=== PATIENT | female | born 1950 | race Two or more races ===

== ENCOUNTER 2018-09-27 09:19 | Outpatient (CLI) | payer OTHER ==
[~2018-09-27 09:19] MED LIST: CEFADROXIL500 MG PO; GLIMEPIRIDE4 MG PO; IRON1TAB4 PO; NORVASC 5MG TAB PO; Neurontin PO; SYNTHROID125 MCG PO; ZESTRIL40 M1 PO
== END 2018-09-27 09:26 | disposition home or self-care (01) ==
LOC: TOM 09:19
DX: D50.8 Other iron deficiency anemias (principal); D50.0 Iron deficiency anemia secondary to blood loss (chronic); K27.9 Peptic ulcer, site unspecified, unspecified as acute or chronic, without hemorrhage or perforation; K90.9 Intestinal malabsorption, unspecified
CPT/HCPCS: 74177; Q9965

== ENCOUNTER 2019-01-09 09:15 | Outpatient (CLI) | payer OTHER | END 2019-01-09 09:18 | disposition home or self-care (01) | LOC: SONOGRAMA 09:15 | DX: R10.9 Unspecified abdominal pain (principal); K82.8 Other specified diseases of gallbladder ==

== ENCOUNTER 2019-02-17 07:16 | Outpatient (CLI) | payer OTHER | END 2019-02-17 07:25 | disposition home or self-care (01) | LOC: NUCLEAR 07:16 | DX: K81.1 Chronic cholecystitis (principal) | CPT/HCPCS: 78227; A9537 ==

== ENCOUNTER 2019-09-29 11:12 | Inpatient (IN) | payer OTHER ==
[~2019-09-29] VITALS: Ht 152.4 cm; Wt 65.8 kg
[2019-09-30] MEDS ORDERED: AMLODIPINE BESYL5 MG PO (08:03)
[2019-09-30] MEDS ORDERED: GABAPENTIN600 MG PO (08:04)
[2019-09-30] MEDS ORDERED: METFORMIN HCL1000 M3 PO (08:04)
[2019-09-30] MEDS ORDERED: CITALOPRAM HBR40 MG PO (08:04)
[2019-09-30] MEDS ORDERED: DAFLONEX-XL 11300 MG PO (08:05)
[2019-09-30] MEDS ORDERED: LEVO-T100 MCG PO (08:05)
[2019-10-01] MEDS ORDERED: IRON1TAB4 PO (18:39)
== END 2019-10-01 19:19 | disposition home or self-care (01) | DRG 812 ==
LOC: MEDJ 11:12
PROVIDERS: ADMIT Internal Medicine Hematology & Oncology
PROC: 8E0ZXY6 Isolation (ICD-10-PCS; principal; 2019-09-29)
PROC: 30233N1 Transfusion of Nonautologous Red Blood Cells into Peripheral Vein, Percutaneous Approach (ICD-10-PCS; 2019-09-29)
PROC: 07DR3ZX Extraction of Iliac Bone Marrow, Percutaneous Approach, Diagnostic (ICD-10-PCS; 2019-10-01)
DX: D50.0 Iron deficiency anemia secondary to blood loss (chronic) (principal); E11.9 Type 2 diabetes mellitus without complications; E03.8 Other specified hypothyroidism; I10 Essential (primary) hypertension

== ENCOUNTER 2020-03-04 11:12 | Outpatient (CLI) | payer OTHER ==
[~2020-03-04 11:12] MED LIST changes: +AMLODIPINE BESYL5 MG PO; +CITALOPRAM HBR40 MG PO; +DAFLONEX-XL 11300 MG PO; +GABAPENTIN600 MG PO; +LEVO-T100 MCG PO; +METFORMIN HCL1000 M3 PO
== END 2020-03-04 11:15 | disposition home or self-care (01) ==
LOC: NUCLEAR 11:12
PROVIDERS: ATTEND Internal Medicine Hematology & Oncology
DX: I87.2 Venous insufficiency (chronic) (peripheral) (principal)

== ENCOUNTER 2020-03-05 11:15 | Outpatient (CLI) | payer OTHER | END 2020-03-05 11:17 | disposition home or self-care (01) | LOC: NUCLEAR 11:15 | PROVIDERS: ATTEND Internal Medicine Hematology & Oncology | DX: I70.213 Atherosclerosis of native arteries of extremities with intermittent claudication, bilateral legs (principal) ==

== ENCOUNTER 2020-03-15 14:11 | Outpatient (CLI) | payer OTHER | END 2020-03-15 14:15 | disposition home or self-care (01) | LOC: RAD 14:11 | PROVIDERS: ATTEND Internal Medicine Cardiovascular Disease | DX: I10 Essential (primary) hypertension (principal) ==

== ENCOUNTER 2020-04-06 17:04 | Inpatient (IN) | payer OTHER ==
[2020-04-09] MEDS ORDERED: CARdura 4MG TABLET PO (18:03)
[2020-04-09] MEDS ORDERED: CARVEDILOL12.5 MG PO (18:03)
[2020-04-09] MEDS ORDERED: LISINOPRIL40 MG PO (18:04)
[2020-04-09] MEDS ORDERED: SYNTHROID125 MCG PO (18:05)
[2020-04-09] MEDS ORDERED: METFORMIN HCL500 MG PO (18:05)
[2020-04-09] MEDS ORDERED: METOLAZONE5 MG PO (18:05)
[2020-04-09] MEDS ORDERED: POM (MEDICAMENTO EN PO (18:06)
[2020-04-09] MEDS ORDERED: LASIX20 MG PO (18:11)
== END 2020-04-09 18:54 | disposition home or self-care (01) | DRG 812 ==
LOC: SURG 17:04 → SURH 04-07 12:56
PROVIDERS: ADMIT Internal Medicine Hematology & Oncology; ATTEND Internal Medicine Hematology & Oncology
PROC: 30233N1 Transfusion of Nonautologous Red Blood Cells into Peripheral Vein, Percutaneous Approach (ICD-10-PCS; principal; 2020-04-07)
PROC: B24BZZZ Ultrasonography of Heart with Aorta (ICD-10-PCS; 2020-04-08)
PROC: BW40ZZZ Ultrasonography of Abdomen (ICD-10-PCS; 2020-04-08)
DX: D50.9 Iron deficiency anemia, unspecified (principal); E03.9 Hypothyroidism, unspecified; I11.0 Hypertensive heart disease with heart failure; E11.319 Type 2 diabetes mellitus with unspecified diabetic retinopathy without macular edema; E11.42 Type 2 diabetes mellitus with diabetic polyneuropathy; I87.2 Venous insufficiency (chronic) (peripheral); E11.22 Type 2 diabetes mellitus with diabetic chronic kidney disease; Z79.4 Long term (current) use of insulin; E11.65 Type 2 diabetes mellitus with hyperglycemia; N18.2 Chronic kidney disease, stage 2 (mild); I50.9 Heart failure, unspecified

== ENCOUNTER 2020-04-23 14:51 | Outpatient (CLI) | payer OTHER ==
[~2020-04-23 14:51] MED LIST changes: +CARVEDILOL12.5 MG PO; +CARdura 4MG TABLET PO; +LASIX20 MG PO; +LISINOPRIL40 MG PO; +METFORMIN HCL500 MG PO; +METOLAZONE5 MG PO; +POM (MEDICAMENTO EN PO
== END 2020-04-23 15:05 | disposition home or self-care (01) ==
LOC: RAD 14:51
PROVIDERS: ATTEND Specialist/Technologist, Other Nephrology
DX: I12.9 Hypertensive chronic kidney disease with stage 1 through stage 4 chronic kidney disease, or unspecified chronic kidney disease (principal); N18.1 Chronic kidney disease, stage 1

== ENCOUNTER 2020-05-18 13:23 | Outpatient (CLI) | payer OTHER | END 2020-05-18 13:40 | disposition home or self-care (01) | LOC: SONOGRAMA 13:23 | PROVIDERS: ATTEND Internal Medicine Sports Medicine | DX: E04.8 Other specified nontoxic goiter (principal); E03.8 Other specified hypothyroidism; E04.1 Nontoxic single thyroid nodule ==

== ENCOUNTER → 2020-06-07 | Outpatient (CLI) | payer OTHER | END | disposition home or self-care (01) | LOC: RX STUDY 09:40 | DX: K57.10 Diverticulosis of small intestine without perforation or abscess without bleeding (principal); D50.0 Iron deficiency anemia secondary to blood loss (chronic) ==

== ENCOUNTER 2020-07-12 12:35 | Inpatient (IN) | payer OTHER ==
[2020-07-14] MEDS ORDERED: CARDURA XL4 MG (08:15)
[2020-07-14] MEDS ORDERED: JANUMET 50-5001 EACH (08:16)
== END 2020-07-14 18:06 | disposition home or self-care (01) | DRG 812 ==
LOC: SURH 12:35 → SURG 13:09 → SURH 13:38
PROVIDERS: ADMIT Internal Medicine Cardiovascular Disease; ATTEND Internal Medicine Cardiovascular Disease
PROC: 30233N1 Transfusion of Nonautologous Red Blood Cells into Peripheral Vein, Percutaneous Approach (ICD-10-PCS; principal; 2020-07-12)
DX: D50.8 Other iron deficiency anemias (principal); E11.40 Type 2 diabetes mellitus with diabetic neuropathy, unspecified; E11.65 Type 2 diabetes mellitus with hyperglycemia; Z79.4 Long term (current) use of insulin; E03.9 Hypothyroidism, unspecified; I10 Essential (primary) hypertension; N18.1 Chronic kidney disease, stage 1; E11.21 Type 2 diabetes mellitus with diabetic nephropathy

== ENCOUNTER → 2020-08-12 | Outpatient (CLI) | payer OTHER ==
[~2020-08-12] MED LIST changes: +CARDURA XL4 MG; +JANUMET 50-5001 EACH
== END | disposition home or self-care (01) ==
LOC: SONOGRAMA 11:35
PROVIDERS: ATTEND Internal Medicine Gastroenterology
DX: K80.80 Other cholelithiasis without obstruction (principal); Q61.02 Congenital multiple renal cysts; R10.84 Generalized abdominal pain

== ENCOUNTER 2020-09-29 09:38 | Inpatient (IN) | payer OTHER ==
[~2020-09-29] VITALS: Ht 152.4 cm; Wt 73.5 kg
[2020-09-30] MEDS ORDERED: CITALOPRAM HBR40 MG PO (17:09)
[2020-09-30] MEDS ORDERED: CARDURA XL4 MG PO (17:09)
[2020-09-30] MEDS ORDERED: LISINOPRIL40 MG PO (17:09)
[2020-09-30] MEDS ORDERED: CARVEDILOL3.125 MG PO (17:11)
== END 2020-09-30 17:27 | disposition home or self-care (01) | DRG 812 ==
LOC: SEC-K 09:38 → MEDI 09:38 → SEC-K 19:08 → SURH 19:32
PROVIDERS: ADMIT Internal Medicine Hematology & Oncology; ATTEND Internal Medicine Hematology & Oncology
PROC: 30233N1 Transfusion of Nonautologous Red Blood Cells into Peripheral Vein, Percutaneous Approach (ICD-10-PCS; principal; 2020-09-29)
DX: D50.0 Iron deficiency anemia secondary to blood loss (chronic) (principal); K55.20 Angiodysplasia of colon without hemorrhage

== ENCOUNTER 2021-03-26 19:38 | Inpatient (IN) | payer OTHER ==
[~2021-03-26] VITALS: Ht 152.4 cm; Wt 74.4 kg
[~2021-03-26 19:38] MED LIST changes: +CARDURA XL4 MG PO; +CARVEDILOL3.125 MG PO
[2021-04-01] MEDS ORDERED: INTESTINEX680 M1 PO (16:58)
== END 2021-04-01 17:22 | disposition home or self-care (01) | DRG 178 ==
LOC: ER 19:38 → MEDJ 03-27 00:10
PROVIDERS: ADMIT Internal Medicine Hematology & Oncology; ATTEND Internal Medicine Hematology & Oncology
PROC: 8E0ZXY6 Isolation (ICD-10-PCS; 2021-03-26)
PROC: 30233N1 Transfusion of Nonautologous Red Blood Cells into Peripheral Vein, Percutaneous Approach (ICD-10-PCS; principal; 2021-03-27)
PROC: 3E0F7SF Introduction of Other Gas into Respiratory Tract, Via Natural or Artificial Opening (ICD-10-PCS; 2021-03-28)
DX: U07.1 COVID-19 (principal); A91 Dengue hemorrhagic fever; D61.818 Other pancytopenia; D50.9 Iron deficiency anemia, unspecified; D69.59 Other secondary thrombocytopenia; E03.8 Other specified hypothyroidism; E11.65 Type 2 diabetes mellitus with hyperglycemia; E11.21 Type 2 diabetes mellitus with diabetic nephropathy; K52.89 Other specified noninfective gastroenteritis and colitis

== ENCOUNTER 2021-05-19 06:44 | Day surgery (SDC) | payer OTHER ==
[~2021-05-19 06:44] MED LIST changes: +INTESTINEX680 M1 PO
== END 2021-05-19 11:15 | disposition home or self-care (01) ==
LOC: AMB-ENDOS 06:44
PROVIDERS: ATTEND Internal Medicine Gastroenterology
DX: D13.2 Benign neoplasm of duodenum (principal); K29.50 Unspecified chronic gastritis without bleeding; Z20.822 Contact with and (suspected) exposure to COVID-19

== ENCOUNTER 2021-06-13 16:58 | Inpatient (IN) | payer OTHER ==
[~2021-06-13] VITALS: Ht 152.4 cm; Wt 73.5 kg
[2021-06-15] MEDS ORDERED: CARVEDILOL3.125 MG PO (16:26)
[2021-06-15] MEDS ORDERED: CITALOPRAM HBR40 MG PO (16:26)
[2021-06-15] MEDS ORDERED: LISINOPRIL40 MG PO (16:26)
[2021-06-15] MEDS ORDERED: CARDURA XL4 MG PO (16:26)
[2021-06-15] MEDS ORDERED: GABAPENTIN600 MG PO (16:27)
[2021-06-15] MEDS ORDERED: SYNTHROID125 MCG PO (16:27)
[2021-06-15] MEDS ORDERED: GLIMEPIRIDE4 MG PO (16:27)
[2021-06-15] MEDS ORDERED: JANUMET 50-5001 EACH PO (16:29)
== END 2021-06-15 17:08 | disposition home or self-care (01) | DRG 812 ==
LOC: MEDI 16:58
PROVIDERS: ADMIT Internal Medicine Hematology & Oncology; ATTEND Internal Medicine Hematology & Oncology
PROC: 30233N1 Transfusion of Nonautologous Red Blood Cells into Peripheral Vein, Percutaneous Approach (ICD-10-PCS; principal; 2021-06-14)
DX: D50.0 Iron deficiency anemia secondary to blood loss (chronic) (principal); K55.20 Angiodysplasia of colon without hemorrhage

== ENCOUNTER 2021-07-07 14:08 | Outpatient (CLI) | payer OTHER ==
[~2021-07-07 14:08] MED LIST changes: +JANUMET 50-5001 EACH PO
== END 2021-07-07 14:12 | disposition home or self-care (01) ==
LOC: PPH VACUNA 14:08
PROVIDERS: ATTEND Emergency Medicine Pediatric Emergency Medicine
DX: Z23 Encounter for immunization (principal)

== ENCOUNTER 2021-07-27 17:05 | Inpatient (IN) | payer OTHER ==
[~2021-07-27] VITALS: Ht 152.4 cm; Wt 73.5 kg
== END 2021-07-29 12:53 | disposition home or self-care (01) | DRG 812 ==
LOC: MEDJ 17:05
PROVIDERS: ADMIT Internal Medicine Hematology & Oncology; ATTEND Internal Medicine Hematology & Oncology
PROC: 30233N1 Transfusion of Nonautologous Red Blood Cells into Peripheral Vein, Percutaneous Approach (ICD-10-PCS; principal; 2021-07-28)
PROC: 8E0ZXY6 Isolation (ICD-10-PCS; 2021-07-28)
PROC: 0DB68ZX Excision of Stomach, Via Natural or Artificial Opening Endoscopic, Diagnostic (ICD-10-PCS; 2021-07-29)
DX: D50.8 Other iron deficiency anemias (principal); D73.2 Chronic congestive splenomegaly; Q27.33 Arteriovenous malformation of digestive system vessel; E11.40 Type 2 diabetes mellitus with diabetic neuropathy, unspecified; E11.65 Type 2 diabetes mellitus with hyperglycemia; E11.22 Type 2 diabetes mellitus with diabetic chronic kidney disease; E03.9 Hypothyroidism, unspecified; K29.40 Chronic atrophic gastritis without bleeding; K57.30 Diverticulosis of large intestine without perforation or abscess without bleeding; K55.20 Angiodysplasia of colon without hemorrhage; K31.7 Polyp of stomach and duodenum; I87.2 Venous insufficiency (chronic) (peripheral); N18.1 Chronic kidney disease, stage 1; Z20.822 Contact with and (suspected) exposure to COVID-19

== ENCOUNTER 2022-06-22 13:15 | Outpatient (CLI) | payer OTHER | END 2022-06-22 13:18 | disposition home or self-care (01) | LOC: RAD 13:15 | PROVIDERS: ATTEND Physical Medicine & Rehabilitation | DX: M25.511 Pain in right shoulder (principal) ==

== ENCOUNTER 2022-07-28 14:25 | Outpatient (CLI) | payer OTHER | END 2022-07-28 14:38 | disposition home or self-care (01) | LOC: PPH VACUNA 14:25 | PROVIDERS: ATTEND Emergency Medicine Pediatric Emergency Medicine | DX: Z23 Encounter for immunization (principal) ==

== ENCOUNTER 2022-10-04 07:36 | Outpatient (CLI) | payer OTHER | END 2022-10-04 07:53 | disposition home or self-care (01) | LOC: MAMO-SONO 07:36 | PROVIDERS: ATTEND Internal Medicine Hematology & Oncology | DX: Z12.31 Encounter for screening mammogram for malignant neoplasm of breast (principal); N93.9 Abnormal uterine and vaginal bleeding, unspecified ==

== ENCOUNTER 2022-10-24 16:13 | Outpatient (CLI) | payer OTHER | END 2022-10-24 16:22 | disposition home or self-care (01) | LOC: RAD 16:13 | PROVIDERS: ATTEND Specialist/Technologist, Other Nephrology | DX: I50.32 Chronic diastolic (congestive) heart failure (principal); I12.9 Hypertensive chronic kidney disease with stage 1 through stage 4 chronic kidney disease, or unspecified chronic kidney disease; N18.1 Chronic kidney disease, stage 1 ==

== ENCOUNTER → 2023-02-09 | Outpatient (CLI) | payer OTHER | END | disposition home or self-care (01) | LOC: PPH VACUNA | PROVIDERS: ATTEND Emergency Medicine Pediatric Emergency Medicine | DX: Z23 Encounter for immunization (principal) ==

== ENCOUNTER → 2023-02-16 | Outpatient (CLI) | payer OTHER | END | disposition home or self-care (01) | LOC: SONOGRAMA 08:38 | PROVIDERS: ATTEND Internal Medicine Cardiovascular Disease | DX: R10.84 Generalized abdominal pain (principal) ==

== ENCOUNTER 2023-03-27 08:17 | Outpatient (CLI) | payer OTHER | END 2023-03-27 08:21 | disposition home or self-care (01) | LOC: TOM 08:17 | PROVIDERS: ATTEND Specialist/Technologist, Other Nephrology | DX: R18.8 Other ascites (principal); I12.9 Hypertensive chronic kidney disease with stage 1 through stage 4 chronic kidney disease, or unspecified chronic kidney disease; N18.30 Chronic kidney disease, stage 3 unspecified ==

== ENCOUNTER 2023-04-11 07:50 | Outpatient (CLI) | payer OTHER | END 2023-04-11 07:59 | disposition home or self-care (01) | LOC: SONOGRAMA 07:50 | PROVIDERS: ATTEND Internal Medicine Gastroenterology | DX: N18.9 Chronic kidney disease, unspecified (principal) ==

== ENCOUNTER 2023-05-23 17:40 | Emergency (ER) | payer OTHER ==
[~2023-05-23] VITALS: Ht 152.4 cm; Wt 76.2 kg
== END 2023-05-23 22:50 | disposition home or self-care (01) ==
LOC: ER 17:40
DX: S01.02XA Laceration with foreign body of scalp, initial encounter (principal); S62.002A Unspecified fracture of navicular [scaphoid] bone of left wrist, initial encounter for closed fracture; W18.39XA Other fall on same level, initial encounter; Y93.89 Activity, other specified; Y92.89 Other specified places as the place of occurrence of the external cause; E11.9 Type 2 diabetes mellitus without complications; Z79.84 Long term (current) use of oral hypoglycemic drugs; I10 Essential (primary) hypertension; E05.80 Other thyrotoxicosis without thyrotoxic crisis or storm; D64.9 Anemia, unspecified
CPT/HCPCS: 70450; 73120; 90471; 90714; 99284; J1670

== ENCOUNTER 2023-09-25 07:27 | Outpatient (CLI) | payer OTHER | END 2023-09-25 07:32 | disposition home or self-care (01) | LOC: SONOGRAMA 07:27 | PROVIDERS: ATTEND Internal Medicine Hematology & Oncology | DX: R16.1 Splenomegaly, not elsewhere classified (principal); R18.8 Other ascites ==

== ENCOUNTER 2023-10-09 16:14 | Outpatient (CLI) | payer OTHER | END 2023-10-09 16:21 | disposition home or self-care (01) | LOC: RAD 16:14 | PROVIDERS: ATTEND Internal Medicine Gastroenterology | DX: I51.7 Cardiomegaly (principal) ==

== ENCOUNTER 2024-03-28 07:42 | Outpatient (CLI) | payer OTHER | END 2024-03-28 07:46 | disposition home or self-care (01) | LOC: SONOGRAMA 07:42 | PROVIDERS: ATTEND Internal Medicine Gastroenterology | DX: R10.12 Left upper quadrant pain (principal) ==

== ENCOUNTER 2024-04-08 11:05 | Inpatient (IN) | payer OTHER ==
[~2024-04-08] VITALS: Ht 152.4 cm; Wt 78.9 kg
[2024-04-08 11:53] LABS: URINE APPEARANCE Clear; URINE BILIRRUBIN Negative (NEGATIVE); URINE BLOOD Negative; URINE COLOR Yellow; URINE GLUCOSE Negative (NEGATIVE); URINE KETONE Negative (NEGATIVE); URINE LEUKOCYTE Trace; URINE NITRATE Negative
[2024-04-08 11:57] LABS: URINE BACTERIA 45.3 uL (0.0-1933); URINE EPITHELIAL CELLS 7.4 uL (0.0-38.8); URINE RBC 4.1 uL (0.0-20.8); URINE WBC 23.4 uL (0.0-23.2)
[2024-04-08 12:04] LABS: URINE PROTEIN 300 (NEGATIVE)
[2024-04-08 12:23] LABS: INR 1.14; PARTIAL THROMBOPLASTIN TIME 29.1 SECONDS (22.0-34.0); PROTHROMBIN TIME 11.9 SECONDS (9.0-11.5)
[2024-04-08 12:24] LABS: MEAN CELL VOLUME 73.5 fL (80.00-100.00); MEAN CORPUSCULAR HGB CONC 30.7 g/dl (32.0-36.0); PLATELET COUNT 234 K/uL (150-450); RED BLOOD COUNT 2.46 M/uL (4.00-6.00); RED CELL DISTRIBUTION WIDTH 22.5 % (11.5-14.5)
[2024-04-08 12:27] LABS: ALBUMIN 3.7 gm/dL (3.4-5.0); BILIRUBIN TOTAL 0.39 mg/dL (0.3-1.2); CALCIUM 9.2 mg/dL (8.5-10.1); CREATININE SERUM 1.45 mg/dL (0.55-1.02); GFR 35.3; GLOBULINA 2.7 G/DL (2.4-3.5); POTASSIUM 4.09 mEq/L (3.5-5.1); TOTAL PROTEIN 6.4 gm/dL (6.4-8.2)
[2024-04-08 12:56] LABS: HEMATOCRIT 18.1 % (36.0-45.00); HEMOGLOBIN 5.5 g/dL (12.0-15.00); MEAN CORPUSCULAR HEMOGLOBIN 22.3 pg (27.00-32.0)
[2024-04-08] MEDS ORDERED: SODIUM CHLORIDE 0.45 % 1,000 ML IV SCH (13:15)
[2024-04-08] MEDS ORDERED: DOXAZOSIN MESYLATE 4 MG TABLET PO SCH (17:00)
[2024-04-08] MEDS ORDERED: JANUMET PO SCH (17:00)
[2024-04-08] MEDS ORDERED: CARVEDILOL 6.25 MG TABLET PO SCH (17:00)
[2024-04-08] MEDS ORDERED: GABAPENTIN 800 MG TABLET PO SCH (21:00)
[2024-04-08] MEDS ORDERED: ENALAPRILAT DIHYDRATE 1.25 MG/ML VIAL IV STA (22:28)
[2024-04-08] MEDS ORDERED: ENALAPRILAT DIHYDRATE 1.25 MG/ML VIAL IV PRN (22:30)
[2024-04-09] MEDS ORDERED: LEVOTHYROXINE SODIUM 25 MCG TABLET PO SCH (06:00)
[2024-04-09] MEDS ORDERED: LISINOPRIL 40 MG TABLET PO SCH (09:00)
[2024-04-10 09:00] LABS: MEAN CELL VOLUME 75.5 fL (80.00-100.00); MEAN CORPUSCULAR HGB CONC 31.7 g/dl (32.0-36.0); PLATELET COUNT 224 K/uL (150-450); RED BLOOD COUNT 2.79 M/uL (4.00-6.00); RED CELL DISTRIBUTION WIDTH 21.8 % (11.5-14.5)
[2024-04-10 09:32] LABS: HEMATOCRIT 21.1 % (36.0-45.00)
[2024-04-10 09:33] LABS: HEMOGLOBIN 6.7 g/dL (12.0-15.00)
[2024-04-11 11:28] LABS: HEMATOCRIT 27.9 % (36.0-45.00); MEAN CELL VOLUME 77.6 fL (80.00-100.00); MEAN CORPUSCULAR HGB CONC 32.9 g/dl (32.0-36.0); PLATELET COUNT 206 K/uL (150-450); RED BLOOD COUNT 3.59 M/uL (4.00-6.00); RED CELL DISTRIBUTION WIDTH 21.5 % (11.5-14.5)
[2024-04-11 11:29] LABS: MEAN CORPUSCULAR HEMOGLOBIN 25.6 pg (27.00-32.0)
[2024-04-11 11:30] LABS: HEMOGLOBIN 9.2 g/dL (12.0-15.00)
== END 2024-04-11 20:17 | disposition home or self-care (01) | DRG 812 ==
LOC: MEDJ 11:05
PROVIDERS: ADMIT Internal Medicine Hematology & Oncology; ATTEND Internal Medicine Hematology & Oncology
PROC: 30233N1 Transfusion of Nonautologous Red Blood Cells into Peripheral Vein, Percutaneous Approach (ICD-10-PCS; principal; 2024-04-10)
DX: D50.0 Iron deficiency anemia secondary to blood loss (chronic) (principal); K92.2 Gastrointestinal hemorrhage, unspecified
CPT/HCPCS: 240

== ENCOUNTER 2024-05-23 10:00 | Outpatient (CLI) | payer OTHER | END 2024-05-23 10:05 | disposition home or self-care (01) | LOC: TOM 10:00 | PROVIDERS: ATTEND Internal Medicine Gastroenterology | DX: R10.9 Unspecified abdominal pain (principal) ==

== ENCOUNTER → 2024-05-28 | Outpatient (CLI) | payer OTHER | END | disposition home or self-care (01) | LOC: SONOGRAMA 09:49 | PROVIDERS: ATTEND Internal Medicine Gastroenterology | DX: L03.316 Cellulitis of umbilicus (principal) ==

== ENCOUNTER 2024-06-25 15:38 | Outpatient (CLI) | payer OTHER | END 2024-06-25 15:45 | disposition home or self-care (01) | LOC: RAD 15:38 | PROVIDERS: ATTEND Internal Medicine Hematology & Oncology | DX: J44.9 Chronic obstructive pulmonary disease, unspecified (principal) ==

== ENCOUNTER 2024-08-08 14:12 | Inpatient (IN) | payer OTHER ==
[~2024-08-08] VITALS: Ht 152.4 cm; Wt 68.0 kg
[2024-08-08] MEDS ORDERED: 0.9 % SODIUM CHLORIDE 1,000 ML IV SCH (16:00)
[2024-08-08] MEDS ORDERED: INSULIN LISPRO 1,000 UNIT/10 ML UNITS SUBCUTANEO PRN (16:30)
[2024-08-08] MEDS ORDERED: DEXTROSE 50 % IN WATER 0.5 G/ML DISP.SYRIN IV PRN (16:30)
[2024-08-08] MEDS ORDERED: GABAPENTIN 600 MG TABLET PO SCH (17:00)
[2024-08-08] MEDS ORDERED: CARVEDILOL 3.125 MG TABLET PO SCH (17:00)
[2024-08-08 18:23] LABS: MEAN CELL VOLUME 91.2 fL (80.00-100.00); MEAN CORPUSCULAR HGB CONC 31.7 g/dl (32.0-36.0); PLATELET COUNT 301 K/uL (150-450); RED BLOOD COUNT 2.52 M/uL (4.00-6.00); RED CELL DISTRIBUTION WIDTH 20.6 % (11.5-14.5)
[2024-08-08 18:28] LABS: MEAN CORPUSCULAR HEMOGLOBIN 28.9 pg (27.00-32.0)
[2024-08-08 18:54] LABS: HEMOGLOBIN 7.3 g/dL (12.0-15.00)
[2024-08-08 19:03] LABS: BILIRUBIN TOTAL 0.31 mg/dL (0.3-1.2); CALCIUM 9.1 mg/dL (8.5-10.1); CREATININE SERUM 1.4 mg/dL (0.55-1.02); GFR 36.76; GLOBULINA 2.5 G/DL (2.4-3.5); POTASSIUM 4.2 mEq/L (3.5-5.1); TOTAL PROTEIN 6.5 gm/dL (6.4-8.2)
[2024-08-08 19:06] LABS: INR 1.05; PARTIAL THROMBOPLASTIN TIME 26.2 SECONDS (22.0-34.0); PROTHROMBIN TIME 11.4 SECONDS (9.0-11.5)
[2024-08-08] MEDS ORDERED: FAMOTIDINE/PF 20 MG in 0.9 % SODIUM CHLORIDE 8 ML IV PUSH SCH (21:00)
[2024-08-08 22:45] VITALS: BP 140/90; O2SAT 96
[2024-08-09 02:02] VITALS: BP 194/79; O2SAT 99
[2024-08-09] MEDS ORDERED: LEVOTHYROXINE SODIUM 125 MCG TABLET PO SCH (06:00)
[2024-08-09] MEDS ORDERED: DOXAZOSIN MESYLATE 4 MG TABLET PO SCH (09:00)
[2024-08-09] MEDS ORDERED: LISINOPRIL 40 MG TABLET PO SCH (09:00)
[2024-08-09 09:49] VITALS: BP 188/70; O2SAT 96
[2024-08-09] MEDS ORDERED: ENALAPRILAT DIHYDRATE 1.25 MG/ML VIAL IV STA (14:28)
[2024-08-09] MEDS ORDERED: FUROsemide 20 MG/2 ML VIAL IV SCH (14:45)
[2024-08-09] MEDS ORDERED: ENALAPRILAT DIHYDRATE 1.25 MG/ML VIAL IV PRN (14:45)
[2024-08-09] MEDS ORDERED: SERTRALINE HCL 50 MG TABLET PO SCH (16:14)
[2024-08-09] MEDS ORDERED: CLONAZEPAM 0.5 MG TABLET PO SCH ×2 (17:00→21:00)
[2024-08-09 17:17] VITALS: BP 150/80; O2SAT 100
[2024-08-09] MEDS ORDERED: LABETALOL HCL 100 MG/20 ML ML IV STA ×2 (20:46→22:14)
[2024-08-10 00:58] VITALS: BP 197/83; O2SAT 99
[2024-08-10 04:14] VITALS: BP 180/78; O2SAT 98
[2024-08-10 10:30] VITALS: BP 200/78; O2SAT 99
[2024-08-10 11:53] LABS: HEMATOCRIT 30.1 % (36.0-45.00); MEAN CELL VOLUME 89.1 fL (80.00-100.00); MEAN CORPUSCULAR HGB CONC 32.4 g/dl (32.0-36.0); PLATELET COUNT 234 K/uL (150-450); RED BLOOD COUNT 3.37 M/uL (4.00-6.00); RED CELL DISTRIBUTION WIDTH 18.3 % (11.5-14.5)
[2024-08-10 11:56] LABS: HEMOGLOBIN 9.7 g/dL (12.0-15.00); MEAN CORPUSCULAR HEMOGLOBIN 28.7 pg (27.00-32.0)
[2024-08-10] MEDS ORDERED: DOXAZOSIN MESYLATE 4 MG TABLET PO SCH (17:00)
[2024-08-10] MEDS ORDERED: CARVEDILOL 6.25 MG TABLET PO SCH (17:00)
[2024-08-10 17:46] VITALS: BP 150/80; O2SAT 97
[2024-08-11 01:37] VITALS: BP 187/80
[2024-08-11] MEDS ORDERED: LOSARTAN POTASSIUM 50 MG TABLET PO SCH (09:00)
[2024-08-11 09:04] VITALS: BP 177/71; O2SAT 97
[2024-08-11] MEDS ORDERED: ACETAMINOPHEN 325 MG TABLET PO STA (10:37)
[2024-08-11] MEDS ORDERED: CARVEDILOL6.25 MG PO (10:50)
[2024-08-11] MEDS ORDERED: LISINOPRIL40 MG PO (10:50)
[2024-08-11] MEDS ORDERED: CARDURA XL4 MG PO (10:50)
[2024-08-11] MEDS ORDERED: COZAAR50 MG PO (10:51)
[2024-08-11] MEDS ORDERED: GLIMEPIRIDE4 MG PO (10:52)
[2024-08-11] MEDS ORDERED: GABAPENTIN600 MG PO (10:52)
[2024-08-11] MEDS ORDERED: CLONAZEPAM0.5 MG PO (10:52)
[2024-08-11] MEDS ORDERED: SYNTHROID125 MCG PO (10:52)
[2024-08-11] MEDS ORDERED: JANUMET 50-5001 EACH PO (10:53)
== END 2024-08-11 12:28 | disposition home or self-care (01) | DRG 812 ==
LOC: ER 14:13 → MEDJ 17:20
PROVIDERS: ADMIT Internal Medicine Hematology & Oncology; ATTEND Internal Medicine Hematology & Oncology
PROC: 30233N1 Transfusion of Nonautologous Red Blood Cells into Peripheral Vein, Percutaneous Approach (ICD-10-PCS; principal; 2024-08-09)
DX: D50.0 Iron deficiency anemia secondary to blood loss (chronic) (principal); K55.20 Angiodysplasia of colon without hemorrhage; K29.40 Chronic atrophic gastritis without bleeding; G44.209 Tension-type headache, unspecified, not intractable; F41.8 Other specified anxiety disorders; I10 Essential (primary) hypertension; E11.9 Type 2 diabetes mellitus without complications; E03.9 Hypothyroidism, unspecified; Z79.84 Long term (current) use of oral hypoglycemic drugs

== ENCOUNTER 2024-09-24 13:45 | Inpatient (IN) | payer OTHER ==
[~2024-09-24] VITALS: Ht 152.4 cm; Wt 83.9 kg
[~2024-09-24 13:45] MED LIST changes: +CARVEDILOL6.25 MG PO; +CLONAZEPAM0.5 MG PO; +COZAAR50 MG PO
[2024-09-24 15:08] LABS: BILIRUBIN TOTAL 0.43 mg/dL (0.3-1.2); CALCIUM 9.4 mg/dL (8.5-10.1); CREATININE SERUM 1.5 mg/dL (0.55-1.02); GFR 33.94; GLOBULINA 2.5 G/DL (2.4-3.5); POTASSIUM 4.83 mEq/L (3.5-5.1); TOTAL PROTEIN 6.5 gm/dL (6.4-8.2)
[2024-09-24 15:15] LABS: INR 1.05; PARTIAL THROMBOPLASTIN TIME 26.8 SECONDS (22.0-34.0); PROTHROMBIN TIME 11.4 SECONDS (9.0-11.5)
[2024-09-24 15:21] LABS: MEAN CELL VOLUME 88.9 fL (80.00-100.00); MEAN CORPUSCULAR HGB CONC 31.7 g/dl (32.0-36.0); PLATELET COUNT 276 K/uL (150-450); RED BLOOD COUNT 2.52 M/uL (4.00-6.00); RED CELL DISTRIBUTION WIDTH 17.9 % (11.5-14.5)
[2024-09-24 15:52] LABS: HEMATOCRIT 22.4 % (36.0-45.00); HEMOGLOBIN 7.1 g/dL (12.0-15.00); MEAN CORPUSCULAR HEMOGLOBIN 28.1 pg (27.00-32.0)
[2024-09-24 16:00] VITALS: BP 170/90; O2SAT 96
[2024-09-24] MEDS ORDERED: FUROsemide 20 MG/2 ML VIAL IV PRN (16:15)
[2024-09-24] MEDS ORDERED: 0.9 % SODIUM CHLORIDE 1,000 ML IV SCH (16:30)
[2024-09-24] MEDS ORDERED: CARVEDILOL 6.25 MG TABLET PO SCH (17:00)
[2024-09-24] MEDS ORDERED: GABAPENTIN 800 MG TABLET PO SCH (17:00)
[2024-09-24] MEDS ORDERED: LISINOPRIL 40 MG TABLET PO SCH (17:00)
[2024-09-24] MEDS ORDERED: DOXAZOSIN MESYLATE 4 MG TABLET PO SCH (17:00)
[2024-09-24] MEDS ORDERED: GLIMEPIRIDE 4 MG TABLET PO SCH (17:00)
[2024-09-24] MEDS ORDERED: PATIENTS OWN MEDICATION (MEDICAMENTO EN PISO) PO SCH (17:00)
[2024-09-24] MEDS ORDERED: CLONAZEPAM 1 MG TABLET PO SCH (21:00)
[2024-09-24] MEDS ORDERED: ENALAPRILAT DIHYDRATE 1.25 MG/ML VIAL IV ONE (22:04)
[2024-09-24] MEDS ORDERED: ENALAPRILAT DIHYDRATE 1.25 MG/ML VIAL IV STA (22:05)
[2024-09-25 01:31] VITALS: BP 187/78; O2SAT 98
[2024-09-25] MEDS ORDERED: ENALAPRILAT DIHYDRATE 1.25 MG/ML VIAL IV STA (03:58)
[2024-09-25] MEDS ORDERED: ENALAPRILAT DIHYDRATE 1.25 MG/ML VIAL IV ONE (04:44)
[2024-09-25] MEDS ORDERED: LEVOTHYROXINE SODIUM 125 MCG TABLET PO SCH (06:00)
[2024-09-25] MEDS ORDERED: PATIENTS OWN MEDICATION (MEDICAMENTO EN PISO) PO SCH (06:00)
[2024-09-25 08:07] VITALS: BP 193/87; O2SAT 96
[2024-09-25] MEDS ORDERED: LISINOPRIL 40 MG TABLET PO SCH (09:00)
[2024-09-25] MEDS ORDERED: SERTRALINE HCL 50 MG TABLET PO SCH (09:00)
[2024-09-25] MEDS ORDERED: LABETALOL HCL 100 MG/20 ML ML IV PUSH STA (11:52)
[2024-09-25 13:36] VITALS: BP 178/74; O2SAT 97
[2024-09-25 15:24] VITALS: BP 142/56; O2SAT 97
[2024-09-25 16:00] VITALS: BP 179/80; O2SAT 97
[2024-09-25] MEDS ORDERED: GABAPENTIN 800 MG TABLET PO SCH (17:00)
[2024-09-25 18:45] VITALS: BP 163/66
[2024-09-26] VITALS: BP 168/80; O2SAT 95
[2024-09-26 08:00] VITALS: BP 170/64; O2SAT 94
[2024-09-26] MEDS ORDERED: LABETALOL HCL 100 MG/20 ML ML IV PRN (11:00)
[2024-09-26 16:00] VITALS: BP 160/100; O2SAT 95
[2024-09-26 17:00] VITALS: BP 160/93
[2024-09-26] MEDS ORDERED: DOXAZOSIN MESYLATE 4 MG TABLET PO SCH (17:00)
[2024-09-27 01:01] VITALS: BP 146/77; O2SAT 97
[2024-09-27 08:00] VITALS: BP 150/75; O2SAT 95
[2024-09-27 08:25] LABS: HEMATOCRIT 28.7 % (36.0-45.00); MEAN CELL VOLUME 87.3 fL (80.00-100.00); MEAN CORPUSCULAR HGB CONC 33.4 g/dl (32.0-36.0); PLATELET COUNT 224 K/uL (150-450); RED BLOOD COUNT 3.29 M/uL (4.00-6.00); RED CELL DISTRIBUTION WIDTH 15.9 % (11.5-14.5)
[2024-09-27 08:29] LABS: HEMOGLOBIN 9.6 g/dL (12.0-15.00); MEAN CORPUSCULAR HEMOGLOBIN 29.1 pg (27.00-32.0)
[2024-09-27] MEDS ORDERED: CARVEDILOL6.25 MG PO (15:12)
[2024-09-27] MEDS ORDERED: LISINOPRIL40 MG PO (15:13)
[2024-09-27] MEDS ORDERED: DOXAZOSIN MESYLA4 MG PO (15:13)
[2024-09-27] MEDS ORDERED: CLONAZEPAM1 MG PO (15:15)
[2024-09-27] MEDS ORDERED: SERTRALINE HCL50 MG PO (15:16)
[2024-09-27] MEDS ORDERED: GLIMEPIRIDE4 MG PO (15:16)
[2024-09-27] MEDS ORDERED: GABAPENTIN800 MG PO (15:16)
[2024-09-27] MEDS ORDERED: SYNTHROID125 MCG PO (15:17)
[2024-09-27] MEDS ORDERED: JANUMET 50-5001 EACH PO (15:17)
== END 2024-09-27 16:29 | disposition home or self-care (01) | DRG 812 ==
LOC: SURH 13:45
PROVIDERS: ADMIT Internal Medicine Hematology & Oncology; ATTEND Internal Medicine Hematology & Oncology
PROC: 30233N1 Transfusion of Nonautologous Red Blood Cells into Peripheral Vein, Percutaneous Approach (ICD-10-PCS; principal; 2024-09-25)
PROC: 0JBH3ZZ Excision of Left Lower Arm Subcutaneous Tissue and Fascia, Percutaneous Approach (ICD-10-PCS; 2024-09-26)
DX: D50.0 Iron deficiency anemia secondary to blood loss (chronic) (principal); L98.498 Non-pressure chronic ulcer of skin of other sites with other specified severity; K55.20 Angiodysplasia of colon without hemorrhage; E11.9 Type 2 diabetes mellitus without complications; E03.8 Other specified hypothyroidism; E11.40 Type 2 diabetes mellitus with diabetic neuropathy, unspecified; Z79.84 Long term (current) use of oral hypoglycemic drugs; I10 Essential (primary) hypertension

== ENCOUNTER 2024-11-18 11:56 | Inpatient (IN) | payer OTHER ==
[~2024-11-18] VITALS: Ht 152.4 cm; Wt 76.2 kg
[~2024-11-18 11:56] MED LIST changes: +CLONAZEPAM1 MG PO; +DOXAZOSIN MESYLA4 MG PO; +GABAPENTIN800 MG PO; +SERTRALINE HCL50 MG PO
[2024-11-18 13:26] LABS: INR 1.03; PARTIAL THROMBOPLASTIN TIME 27.6 SECONDS (22.0-34.0); PROTHROMBIN TIME 11.2 SECONDS (9.0-11.5)
[2024-11-18 13:29] LABS: ALBUMIN 3.9 gm/dL (3.4-5.0); BILIRUBIN TOTAL 0.39 mg/dL (0.3-1.2); CALCIUM 9.3 mg/dL (8.5-10.1); CREATININE SERUM 2.15 mg/dL (0.55-1.02); GFR 22.34; GLOBULINA 2.6 G/DL (2.4-3.5); POTASSIUM 5.73 mEq/L (3.5-5.1); TOTAL PROTEIN 6.5 gm/dL (6.4-8.2)
[2024-11-18 13:33] LABS: MEAN CELL VOLUME 93.5 fL (80.00-100.00); MEAN CORPUSCULAR HGB CONC 31.4 g/dl (32.0-36.0); PLATELET COUNT 254 K/uL (150-450); RED BLOOD COUNT 2.22 M/uL (4.00-6.00)
[2024-11-18 13:47] LABS: HEMATOCRIT 20.8 % (36.0-45.00); HEMOGLOBIN 6.5 g/dL (12.0-15.00); MEAN CORPUSCULAR HEMOGLOBIN 29.2 pg (27.00-32.0); RED CELL DISTRIBUTION WIDTH 25.4 % (11.5-14.5)
[2024-11-18] MEDS ORDERED: FUROsemide 20 MG/2 ML VIAL IV SCH (14:45)
[2024-11-18] MEDS ORDERED: ACETAMINOPHEN 325 MG TABLET PO PRN (14:45)
[2024-11-18] MEDS ORDERED: RINGERS SOLUTION,LACTATED 1,000 ML IV SCH ×2 (14:45→15:00)
[2024-11-18] MEDS ORDERED: ONDANSETRON HCL 2 MG/ML VIAL IV SCH (17:00)
[2024-11-18 17:38] VITALS: BP 139/70; O2SAT 96
[2024-11-18] MEDS ORDERED: FAMOtidine 20 MG TABLET PO SCH (21:00)
[2024-11-18] MEDS ORDERED: FAMOTIDINE/PF 20 MG/2 ML VIAL IV SCH (21:00)
[2024-11-18] MEDS ORDERED: SODIUM POLYSTYRENE SULFONATE 15 G/4 TSP TSP PO SCH (22:47)
[2024-11-19 02:27] VITALS: BP 136/69; O2SAT 92
[2024-11-19] MEDS ORDERED: SODIUM POLYSTYRENE SULFONATE 15 G/4 TSP TSP PO SCH (09:00)
[2024-11-19] MEDS ORDERED: MULTIVIT INFUSN,ADULT 4,VIT K 10 ML VIAL IV SCH (09:00)
[2024-11-19 09:50] VITALS: BP 126/63; O2SAT 98
[2024-11-19 14:09] LABS: HEMATOCRIT 30.5 % (36.0-45.00); HEMOGLOBIN 10.1 g/dL (12.0-15.00); MEAN CORPUSCULAR HEMOGLOBIN 30.1 pg (27.00-32.0); MEAN CORPUSCULAR HGB CONC 33.1 g/dl (32.0-36.0); PLATELET COUNT 232 K/uL (150-450); RED BLOOD COUNT 3.36 M/uL (4.00-6.00); RED CELL DISTRIBUTION WIDTH 21.6 % (11.5-14.5)
[2024-11-19 18:26] VITALS: BP 166/74
[2024-11-20 01:41] VITALS: BP 132/60; O2SAT 95
[2024-11-20 08:08] VITALS: BP 179/82
[2024-11-20 08:52] LABS: HEMATOCRIT 28.3 % (36.0-45.00); HEMOGLOBIN 9.4 g/dL (12.0-15.00); MEAN CELL VOLUME 90.3 fL (80.00-100.00); MEAN CORPUSCULAR HGB CONC 33.2 g/dl (32.0-36.0); PLATELET COUNT 221 K/uL (150-450); RED BLOOD COUNT 3.14 M/uL (4.00-6.00); RED CELL DISTRIBUTION WIDTH 21.2 % (11.5-14.5)
[2024-11-20 09:17] LABS: CALCIUM 8.7 mg/dL (8.5-10.1); CREATININE SERUM 1.91 mg/dL (0.55-1.02); GFR 25.61; POTASSIUM 4.2 mEq/L (3.5-5.1)
[2024-11-20 17:13] VITALS: BP 151/71
[2024-11-21 01:55] VITALS: BP 160/79; O2SAT 97
[2024-11-21 07:57] VITALS: BP 179/79
[2024-11-21] MEDS ORDERED: MIDAZOLAM HCL 2 MG/2 ML VIAL IV ONE (15:30)
[2024-11-21] MEDS ORDERED: FLUMAZENIL 0.5 MG/5 ML ML IV STA ×2 (15:30→15:31)
[2024-11-21] MEDS ORDERED: fentaNYL CITRATE 50 MCG/ML AMPUL IV PUSH ONE (15:30)
[2024-11-21] MEDS ORDERED: ENALAPRILAT DIHYDRATE 1.25 MG/ML VIAL IV ONE (15:30)
[2024-11-21] MEDS ORDERED: DIPHENHYDRAMINE HCL 50 MG/ML VIAL 1ML IV ONE (15:30)
[2024-11-21] MEDS ORDERED: NALOXONE HCL 0.4 MG/ML AMPUL IV STA (15:30)
[2024-11-21 17:25] VITALS: BP 180/75; O2SAT 97
== END 2024-11-21 19:12 | disposition home or self-care (01) | DRG 684 ==
LOC: MEDI 11:56 → MEDJ 12:38
PROVIDERS: ADMIT Internal Medicine Hematology & Oncology; ATTEND Internal Medicine Hematology & Oncology
PROC: 30233N1 Transfusion of Nonautologous Red Blood Cells into Peripheral Vein, Percutaneous Approach (ICD-10-PCS; principal; 2024-11-18)
PROC: CD171ZZ Planar Nuclear Medicine Imaging of Gastrointestinal Tract using Technetium 99m (Tc-99m) (ICD-10-PCS; 2024-11-20)
DX: N18.9 Chronic kidney disease, unspecified (principal); E87.5 Hyperkalemia; E11.9 Type 2 diabetes mellitus without complications; Z79.4 Long term (current) use of insulin; I10 Essential (primary) hypertension; I50.9 Heart failure, unspecified; E03.9 Hypothyroidism, unspecified; D50.9 Iron deficiency anemia, unspecified

== ENCOUNTER 2024-12-08 17:36 | Inpatient (IN) | payer OTHER ==
[~2024-12-08] VITALS: Ht 152.4 cm; Wt 78.0 kg
[2024-12-08 18:00] VITALS: BP 149/78
[2024-12-08] MEDS ORDERED: FUROsemide 20 MG/2 ML VIAL IV SCH (18:15)
[2024-12-08] MEDS ORDERED: RINGERS SOLUTION,LACTATED 1,000 ML IV SCH (18:15)
[2024-12-08 18:24] LABS: MEAN CELL VOLUME 86.4 fL (80.00-100.00); MEAN CORPUSCULAR HGB CONC 32.4 g/dl (32.0-36.0); PLATELET COUNT 313 K/uL (150-450); RED BLOOD COUNT 2.08 M/uL (4.00-6.00); RED CELL DISTRIBUTION WIDTH 19.6 % (11.5-14.5)
[2024-12-08 18:38] LABS: HEMOGLOBIN 5.8 g/dL (12.0-15.00); MEAN CORPUSCULAR HEMOGLOBIN 27.8 pg (27.00-32.0)
[2024-12-08 18:39] LABS: ALBUMIN 3.7 gm/dL (3.4-5.0); BILIRUBIN TOTAL 0.35 mg/dL (0.3-1.2); CREATININE SERUM 1.91 mg/dL (0.55-1.02); GFR 25.61; GLOBULINA 2.6 G/DL (2.4-3.5); INR 1.05; PARTIAL THROMBOPLASTIN TIME 25.2 SECONDS (22.0-34.0); PHOSPHOROUS 3.9 mg/dL (2.5-4.9); POTASSIUM 4.63 mEq/L (3.5-5.1); PROTHROMBIN TIME 11.4 SECONDS (9.0-11.5); TOTAL PROTEIN 6.3 gm/dL (6.4-8.2)
[2024-12-08 18:40] LABS: C-REACTIVE PROTEIN 0.44 MG/DL (0.00-0.29)
[2024-12-08 18:52] LABS: ERYTHROCYTE SEDIMENTATION RATE < 1 mm/hr
[2024-12-09 02:52] VITALS: BP 149/78; O2SAT 85
[2024-12-09 08:40] VITALS: BP 154/75; O2SAT 98
[2024-12-09 17:16] VITALS: BP 160/73; O2SAT 100
[2024-12-09 22:15] VITALS: BP 160/71; O2SAT 97
[2024-12-10 02:05] LABS: HEMATOCRIT 28.5 % (36.0-45.00); MEAN CELL VOLUME 88.2 fL (80.00-100.00); MEAN CORPUSCULAR HEMOGLOBIN 28.4 pg (27.00-32.0); MEAN CORPUSCULAR HGB CONC 32.2 g/dl (32.0-36.0); PLATELET COUNT 276 K/uL (150-450); RED BLOOD COUNT 3.23 M/uL (4.00-6.00); RED CELL DISTRIBUTION WIDTH 17.5 % (11.5-14.5)
[2024-12-10 02:11] LABS: HEMOGLOBIN 9.2 g/dL (12.0-15.00)
[2024-12-10 02:27] VITALS: BP 166/75; O2SAT 98
[2024-12-10 08:10] VITALS: BP 185/71; O2SAT 92
[2024-12-10 17:25] VITALS: BP 160/77; O2SAT 100
[2024-12-10 22:52] VITALS: BP 184/88
[2024-12-11 02:46] VITALS: BP 157/69; O2SAT 98
[2024-12-11 08:06] VITALS: BP 137/68; O2SAT 97
[2024-12-11 21:03] VITALS: BP 193/76; O2SAT 95
[2024-12-11 22:17] VITALS: BP 191/72; O2SAT 96
[2024-12-12] VITALS: BP 189/81; O2SAT 98
[2024-12-12 10:38] VITALS: BP 179/84; O2SAT 97
[2024-12-12 17:33] VITALS: BP 196/84
[2024-12-12 18:22] VITALS: BP 196/84
== END 2024-12-12 18:23 | disposition home or self-care (01) | DRG 394 ==
LOC: MEDI 17:36 → MEDJ 17:38
PROVIDERS: ADMIT Internal Medicine Hematology & Oncology; ATTEND Internal Medicine Hematology & Oncology
PROC: 30233N1 Transfusion of Nonautologous Red Blood Cells into Peripheral Vein, Percutaneous Approach (ICD-10-PCS; principal; 2024-12-09)
PROC: 0DB78ZX Excision of Stomach, Pylorus, Via Natural or Artificial Opening Endoscopic, Diagnostic (ICD-10-PCS; 2024-12-11)
DX: K92.89 Other specified diseases of the digestive system (principal); Q27.30 Arteriovenous malformation, site unspecified; D50.0 Iron deficiency anemia secondary to blood loss (chronic); I10 Essential (primary) hypertension; K29.40 Chronic atrophic gastritis without bleeding; K55.20 Angiodysplasia of colon without hemorrhage

== ENCOUNTER 2025-01-26 10:20 | Inpatient (IN) | payer OTHER ==
[~2025-01-26] VITALS: Ht 152.4 cm; Wt 78.9 kg
[2025-01-26 11:12] LABS: BASO % 0.2 % (0.1-1.2); EOS # 0.09 (0.04-0.54); EOS % 2.2 % (0.7-7.0); LYMPH # 0.25 (1.18-3.74); LYMPH % 6.1 % (19.3-53.1); MEAN CORPUSCULAR HEMOGLOBIN 28.5 pg (25.6-32.2); MONO # 0.22 (0.24-0.82); MONO % 5.4 % (4.7-12.5); NEUT # 3.44 (1.56-6.13); NEUT % 84.4 % (34.0-71.1); PLATELET COUNT 199 K/uL (163-369); RED CELL DISTRIBUTION WIDTH 21.1 % (11.6-14.4)
[2025-01-26 11:32] LABS: PARTIAL THROMBOPLASTIN TIME 30.5 SECONDS (22.0-34.0); PROTHROMBIN TIME 10.9 SECONDS (9.0-11.5)
[2025-01-26 11:34] LABS: HEMATOCRIT 24.5 % (34.1-44.9)
[2025-01-26 11:35] LABS: HEMOGLOBIN 7.4 g/dL (11.2-15.7)
[2025-01-26 12:00] LABS: ALBUMIN 3.7 gm/dL (3.4-5.0); BILIRUBIN TOTAL 0.42 mg/dL (0.3-1.2); CREATININE SERUM 1.19 mg/dL (0.55-1.02); GFR 44.22; GLOBULINA 2.5 G/DL (2.4-3.5); POTASSIUM 5.43 mEq/L (3.5-5.1); TOTAL PROTEIN 6.2 gm/dL (6.4-8.2)
[2025-01-26 17:15] VITALS: BP 169/78; O2SAT 96
[2025-01-26] MEDS ORDERED: FUROsemide 20 MG/2 ML VIAL IV PRN (17:30)
[2025-01-26] MEDS ORDERED: TRAZODONE HCL 50 MG TABLET PO SCH (21:00)
[2025-01-26] MEDS ORDERED: CLONAZEPAM 1 MG TABLET PO SCH (21:00)
[2025-01-27 01:13] VITALS: BP 138/80
[2025-01-27] MEDS ORDERED: SERTRALINE HCL 50 MG TABLET PO SCH (09:00)
[2025-01-27 09:15] VITALS: BP 115/80; O2SAT 98
[2025-01-27 17:44] VITALS: BP 184/82
[2025-01-27 19:20] LABS: HEMATOCRIT 37.7 % (34.1-44.9); HEMOGLOBIN 12.3 g/dL (11.2-15.7); MEAN CORPUSCULAR HEMOGLOBIN 28.9 pg (25.6-32.2); PLATELET COUNT 208 K/uL (163-369); RED BLOOD COUNT 4.25 M/uL (3.93-5.22)
[2025-01-27 19:21] LABS: BASO % 0.3 % (0.1-1.2); EOS # 0.13 (0.04-0.54); EOS % 2.2 % (0.7-7.0); LYMPH # 0.38 (1.18-3.74); LYMPH % 6.5 % (19.3-53.1); MONO # 0.33 (0.24-0.82); MONO % 5.7 % (4.7-12.5); NEUT # 4.92 (1.56-6.13); NEUT % 84.3 % (34.0-71.1)
[2025-01-28 02:56] VITALS: BP 172/86; O2SAT 90
== END 2025-01-28 10:58 | disposition home or self-care (01) | DRG 812 ==
LOC: MEDJ 10:20
PROVIDERS: ADMIT Internal Medicine Hematology & Oncology; ATTEND Internal Medicine Hematology & Oncology
PROC: 30233N1 Transfusion of Nonautologous Red Blood Cells into Peripheral Vein, Percutaneous Approach (ICD-10-PCS; principal; 2025-01-26)
PROC: 8E0ZXY6 Isolation (ICD-10-PCS; 2025-01-26)
PROC: BW20YZZ Computerized Tomography (CT Scan) of Abdomen using Other Contrast (ICD-10-PCS; 2025-01-27)
DX: D50.0 Iron deficiency anemia secondary to blood loss (chronic) (principal); K55.20 Angiodysplasia of colon without hemorrhage; I10 Essential (primary) hypertension; E03.9 Hypothyroidism, unspecified
CPT/HCPCS: 74175

== ENCOUNTER → 2025-02-20 | Outpatient (CLI) | payer OTHER | END | disposition home or self-care (01) | LOC: TOM 13:56 | PROVIDERS: ATTEND Internal Medicine Pulmonary Disease | DX: R91.8 Other nonspecific abnormal finding of lung field (principal); J84.112 Idiopathic pulmonary fibrosis ==

== ENCOUNTER 2025-02-25 08:02 | Outpatient (CLI) | payer OTHER | END 2025-02-25 08:06 | disposition home or self-care (01) | LOC: SONOGRAMA 08:02 | PROVIDERS: ATTEND Internal Medicine Gastroenterology | DX: K76.6 Portal hypertension (principal) ==

== ENCOUNTER 2025-03-11 07:24 | Outpatient (CLI) | payer OTHER | END 2025-03-11 07:25 | disposition home or self-care (01) | LOC: NUCLEAR 07:24 | PROVIDERS: ATTEND Internal Medicine Hematology & Oncology | DX: C80.1 Malignant (primary) neoplasm, unspecified (principal); D50.0 Iron deficiency anemia secondary to blood loss (chronic); R06.01 Orthopnea; R91.1 Solitary pulmonary nodule | CPT/HCPCS: 78816; A9552 ==